=== PATIENT | female | born 1980 | race Two or more races ===

== ENCOUNTER 2024-03-13 05:28 | Day surgery (SDC) | payer OTHER ==
[2024-03-10 11:17] LABS: URINE APPEARANCE Clear; URINE BILIRRUBIN Negative (NEGATIVE); URINE BLOOD Negative; URINE COLOR Yellow; URINE GLUCOSE Negative (NEGATIVE); URINE KETONE Trace (NEGATIVE); URINE LEUKOCYTE Negative; URINE NITRATE Negative; URINE PROTEIN Negative (NEGATIVE); URINE UROBILINOGEN 0.2 E.U./dl
[2024-03-10 11:21] LABS: URINE BACTERIA 110.8 uL (0.0-1933); URINE EPITHELIAL CELLS 14.2 uL (0.0-38.8); URINE RBC 6.1 uL (0.0-20.8); URINE WBC 10.5 uL (0.0-23.2)
[2024-03-10 11:23] LABS: HEMATOCRIT 34.3 % (36.0-45.00); HEMOGLOBIN 11.2 g/dL (12.0-15.00); MEAN CELL VOLUME 74.9 fL (80.00-100.00); MEAN CORPUSCULAR HEMOGLOBIN 24.4 pg (27.00-32.0); MEAN CORPUSCULAR HGB CONC 32.6 g/dl (32.0-36.0); PLATELET COUNT 353 K/uL (150-450); RED BLOOD COUNT 4.59 M/uL (4.00-6.00); RED CELL DISTRIBUTION WIDTH 15.6 % (11.5-14.5)
[2024-03-10 11:43] LABS: INR 0.99; PARTIAL THROMBOPLASTIN TIME 27.6 SECONDS (22.0-34.0); PROTHROMBIN TIME 10.8 SECONDS (9.0-11.5)
[2024-03-10 11:49] LABS: BILIRUBIN TOTAL 0.39 mg/dL (0.3-1.2); CREATININE SERUM 0.68 mg/dL (0.55-1.02); GFR 94.89; GLOBULINA 3.8 G/DL (2.4-3.5); POTASSIUM 4.22 mEq/L (3.5-5.1); TOTAL PROTEIN 7.8 gm/dL (6.4-8.2)
[~2024-03-13 05:28] MED LIST: CRESTOR40 MG PO; FLONASE16 GM NS; METFORMIN HCL500 M3 PO; SYMBICORT 80/10.2 GM IH; ZYRTEC10 M3 PO
[2024-03-13] MEDS ORDERED: CEFAZOLIN SODIUM 1,000 MG VIAL IV ONE (08:15)
[2024-03-13] MEDS ORDERED: POVIDONE-IODINE 118 ML BOTT TOP ONE (08:30)
[2024-03-13] MEDS ORDERED: DOXYCYCLINE HY100 MG PO (09:32)
[2024-03-13] MEDS ORDERED: IBU600 MG PO (09:33)
== END 2024-03-13 13:25 | disposition home or self-care (01) ==
LOC: CIR.AMB 05:28
PROVIDERS: ATTEND Obstetrics & Gynecology
DX: D25.0 Submucous leiomyoma of uterus (principal); N84.0 Polyp of corpus uteri; N92.0 Excessive and frequent menstruation with regular cycle; J45.909 Unspecified asthma, uncomplicated; E11.9 Type 2 diabetes mellitus without complications

== ENCOUNTER 2024-11-18 18:48 | Inpatient (IN) | payer OTHER ==
[~2024-11-18] VITALS: Ht 167.1 cm; Wt 127.0 kg
[~2024-11-18 18:48] MED LIST changes: +DOXYCYCLINE HY100 MG PO; +IBU600 MG PO
[2024-11-18] MEDS ORDERED: EZALLOR SPRINKLE5 MG (19:02)
[2024-11-18] MEDS ORDERED: 0.9 % SODIUM CHLORIDE 1,000 ML IV STA (19:22)
[2024-11-18 19:47] LABS: BASO % 0.3 % (0.1-1.2); EOS # 0.17 (0.04-0.54); HEMATOCRIT 36.6 % (34.1-44.9); HEMOGLOBIN 11.9 g/dL (11.2-15.7); LYMPH % 25.6 % (19.3-53.1); MEAN CORPUSCULAR HEMOGLOBIN 28.3 pg (25.6-32.2); MONO # 0.78 (0.24-0.82); MONO % 9.1 % (4.7-12.5); NEUT # 5.41 (1.56-6.13); NEUT % 62.9 % (34.0-71.1); PLATELET COUNT 330 K/uL (163-369); RED CELL DISTRIBUTION WIDTH 13.5 % (11.6-14.4)
[2024-11-18 20:08] LABS: INR 1.03; PARTIAL THROMBOPLASTIN TIME 25.4 SECONDS (22.0-34.0); PROTHROMBIN TIME 11.2 SECONDS (9.0-11.5)
[2024-11-18 20:12] LABS: ALBUMIN 3.7 gm/dL (3.4-5.0); BILIRUBIN TOTAL 0.15 mg/dL (0.3-1.2); CALCIUM 8.9 mg/dL (8.5-10.1); CREATININE SERUM 0.85 mg/dL (0.55-1.02); GFR 73.34; GLOBULINA 3.6 G/DL (2.4-3.5); POTASSIUM 3.71 mEq/L (3.5-5.1); TOTAL PROTEIN 7.3 gm/dL (6.4-8.2)
[2024-11-18] MEDS ORDERED: POVIDONE-IODINE 118 ML BOTT TOP ONE (20:25)
[2024-11-18] MEDS ORDERED: CEFAZOLIN SODIUM 1,000 MG VIAL ONE (20:26)
[2024-11-18] MEDS ORDERED: SUGAMMADEX SODIUM 200 MG/2 ML VIAL IV ONE (22:09)
[2024-11-18] MEDS ORDERED: hydrALAZINE HCL 20 MG VIAL ONE (22:16)
[2024-11-18] MEDS ORDERED: KETOROLAC TROMETHAMINE 30 MG VIAL IV PRN (22:30)
[2024-11-18] MEDS ORDERED: ONDANSETRON HCL 2 MG/ML VIAL IV PRN (22:30)
[2024-11-18] MEDS ORDERED: RINGERS SOLUTION,LACTATED 1,000 ML IV SCH (22:30)
[2024-11-18] MEDS ORDERED: MORPHINE SULFATE 4 MG/ML CARTRIDGE IV PRN (22:30)
[2024-11-18] MEDS ORDERED: MORPHINE SULFATE 4 MG/ML VIAL IV ONE ×2 (23:15→23:45)
[2024-11-19 00:56] LABS: BASO % 0.4 % (0.1-1.2); EOS % 2.1 % (0.7-7.0); HEMATOCRIT 34.5 % (34.1-44.9); HEMOGLOBIN 10.9 g/dL (11.2-15.7); LYMPH # 2.92 (1.18-3.74); LYMPH % 30.8 % (19.3-53.1); MONO # 0.75 (0.24-0.82); MONO % 7.9 % (4.7-12.5); NEUT # 5.55 (1.56-6.13); NEUT % 58.6 % (34.0-71.1); PLATELET COUNT 341 K/uL (163-369); RED BLOOD COUNT 3.89 M/uL (3.93-5.22); RED CELL DISTRIBUTION WIDTH 13.7 % (11.6-14.4)
[2024-11-19 01:40] VITALS: O2SAT 99
[2024-11-19 02:04] VITALS: BP 109/58
[2024-11-19 06:28] LABS: BASO % 0.2 % (0.1-1.2); EOS # 0.01 (0.04-0.54); EOS % 0.1 % (0.7-7.0); HEMATOCRIT 32.4 % (34.1-44.9); HEMOGLOBIN 10.1 g/dL (11.2-15.7); LYMPH # 1.69 (1.18-3.74); LYMPH % 14.3 % (19.3-53.1); MEAN CORPUSCULAR HEMOGLOBIN 27.6 pg (25.6-32.2); MONO # 0.97 (0.24-0.82); MONO % 8.2 % (4.7-12.5); NEUT # 9.09 (1.56-6.13); NEUT % 76.9 % (34.0-71.1); PLATELET COUNT 307 K/uL (163-369); RED BLOOD COUNT 3.66 M/uL (3.93-5.22); RED CELL DISTRIBUTION WIDTH 13.7 % (11.6-14.4)
[2024-11-19 08:19] VITALS: BP 123/63
[2024-11-19] MEDS ORDERED: SIMETHICONE 125 MG CAPSULE PO SCH (09:00)
[2024-11-19] MEDS ORDERED: ACETAMINOPHEN WITH CODEINE 1 UDTAB TABLET PO SCH (09:00)
[2024-11-19] MEDS ORDERED: NAPROXEN 500 MG TABLET PO SCH (09:00)
[2024-11-19 12:25] VITALS: BP 123/63
[2024-11-19] MEDS ORDERED: NAPROXEN500 MG PO (14:15)
== END 2024-11-19 16:21 | disposition home or self-care (01) | DRG 743 ==
LOC: ER 18:48 → OB/GYN 19:44 → SEC-K 19:44 → OB/GYN 22:08
PROVIDERS: ADMIT Obstetrics & Gynecology; ATTEND Obstetrics & Gynecology
PROC: 0UB90ZZ Excision of Uterus, Open Approach (ICD-10-PCS; principal; 2024-11-18 19:30)
DX: D25.0 Submucous leiomyoma of uterus (principal); N92.0 Excessive and frequent menstruation with regular cycle

== ENCOUNTER 2025-01-08 08:15 | Inpatient (IN) | payer OTHER ==
[~2025-01-08] VITALS: Ht 172.7 cm; Wt 124.3 kg
[~2025-01-08 08:15] MED LIST changes: +EZALLOR SPRINKLE5 MG; +NAPROXEN500 MG PO
[2025-01-08 10:00] VITALS: BP 118/70
[2025-01-08] MEDS ORDERED: OZEMPIC2 MG/0.75 SQ (10:00)
[2025-01-08 10:03] VITALS: BP 124/81
[2025-01-08 10:07] LABS: BASO % 0.4 % (0.1-1.2); EOS # 0.24 (0.04-0.54); EOS % 2.9 % (0.7-7.0); LYMPH # 2.02 (1.18-3.74); LYMPH % 24.3 % (19.3-53.1); MEAN PLATELET VOLUME 11.60 fl (9.4-12.4); MONO # 0.77 (0.24-0.82); MONO % 9.3 % (4.7-12.5); NEUT # 5.24 (1.56-6.13); NEUT % 62.9 % (34.0-71.1); RED CELL DISTRIBUTION WIDTH 12.4 % (11.6-14.4)
[2025-01-08 10:09] LABS: URINE APPEARANCE Clear; URINE BILIRRUBIN Negative (NEGATIVE); URINE BLOOD Small; URINE COLOR Yellow; URINE GLUCOSE Negative (NEGATIVE); URINE KETONE 15 (NEGATIVE); URINE LEUKOCYTE Trace; URINE NITRATE Negative; URINE PROTEIN Negative (NEGATIVE); URINE UROBILINOGEN 0.2 E.U./dl
[2025-01-08 10:12] LABS: URINE BACTERIA 20.3 uL (0.0-1933); URINE EPITHELIAL CELLS 42.4 uL (0.0-38.8); URINE RBC 48.3 uL (0.0-20.8); URINE WBC 27.3 uL (0.0-23.2)
[2025-01-08 10:23] LABS: URINE CAST 0.00 uL (0.0-1.40)
[2025-01-08 10:38] LABS: ALT/SGPT 19.0 U/L (12-78); AST/SGOT 12.0 U/L (15-37); BILIRUBIN TOTAL 0.26 mg/dL (0.3-1.2); BUN CREA RATIO 27.0 (7.0-25.0); CREATININE SERUM 0.63 mg/dL (0.55-1.02); GFR 103.63; GLOBULINA 3.1 G/DL (2.4-3.5); GLUCOSE FASTING 97.0 mg/dL (65-100); OSMOLALITY SERUM 285.0 MOSM/KG (275-295)
[2025-01-08 10:42] LABS: INR 1.03
[2025-01-15] MEDS ORDERED: POVIDONE-IODINE 118 ML BOTT TOP ONE (12:00)
[2025-01-15] MEDS ORDERED: CEFOXITIN SODIUM 2,000 MG VIAL IV ONE (12:00)
[2025-01-15] MEDS ORDERED: METRONIDAZOLE/SODIUM CHLORIDE 500 MG/100 ML PIGGYBACK IV ONE (12:00)
[2025-01-15] MEDS ORDERED: VITAMIN D31250 MCG (13:24)
[2025-01-15] MEDS ORDERED: RINGERS SOLUTION,LACTATED 1,000 ML IV SCH (13:45)
[2025-01-15] MEDS ORDERED: ONDANSETRON HCL 2 MG/ML VIAL IV PRN (13:45)
[2025-01-15] MEDS ORDERED: MORPHINE SULFATE 4 MG/ML CARTRIDGE IV PRN (13:45)
[2025-01-15] MEDS ORDERED: KETOROLAC TROMETHAMINE 30 MG VIAL IV PRN (14:00)
[2025-01-15] MEDS ORDERED: SUGAMMADEX SODIUM 200 MG/2 ML VIAL IV ONE (14:30)
[2025-01-15] MEDS ORDERED: DEXTROSE 50 % IN WATER 0.5 G/ML VIAL IV PRN (14:45)
[2025-01-15] MEDS ORDERED: INSULIN LISPRO 1,000 UNIT/10 ML UNITS SUBCUTANEO PRN (14:45)
[2025-01-15] MEDS ORDERED: MORPHINE SULFATE 4 MG/ML VIAL IV ONE ×2 (15:45)
[2025-01-15] MEDS ORDERED: SIMETHICONE 125 MG CAPSULE PO SCH (18:00)
[2025-01-15] MEDS ORDERED: LEVALBUTEROL HCL 0.63 MG/3 ML SOLUTION IH SCH (18:00)
[2025-01-15 19:30] VITALS: BP 118/70; O2SAT 97
[2025-01-15 20:57] LABS: BASO % 0.2 % (0.1-1.2); EOS # 0.06 (0.04-0.54); EOS % 0.5 % (0.7-7.0); LYMPH # 1.50 (1.18-3.74); LYMPH % 12.2 % (19.3-53.1); MEAN PLATELET VOLUME 11.70 fl (9.4-12.4); MONO # 0.80 (0.24-0.82); MONO % 6.5 % (4.7-12.5); NEUT # 9.84 (1.56-6.13); NEUT % 80.4 % (34.0-71.1); RED CELL DISTRIBUTION WIDTH 12.6 % (11.6-14.4)
[2025-01-15] MEDS ORDERED: FAMOTIDINE/PF 20 MG/2 ML VIAL IV SCH (21:00)
[2025-01-16 01:59] VITALS: BP 104/62; O2SAT 95
[2025-01-16] MEDS ORDERED: ACETAMINOPHEN WITH CODEINE 1 UDTAB TABLET PO PRN (06:00)
[2025-01-16 08:00] VITALS: BP 120/68; O2SAT 95
[2025-01-16] MEDS ORDERED: ACETAMINOPHEN-1 EAC2 PO (08:48)
[2025-01-16] MEDS ORDERED: NAPROXEN500 MG PO (08:49)
[2025-01-16] MEDS ORDERED: PEPCID20 MG PO (08:49)
[2025-01-16] MEDS ORDERED: NAPROXEN 500 MG TABLET PO PRN (09:00)
== END 2025-01-16 13:56 | disposition home or self-care (01) | DRG 743 ==
LOC: OB/GYN 01-15 08:15 → O/R 01-15 10:33 → OB/GYN 01-15 11:15 → SURH 01-15 15:02
PROVIDERS: ADMIT Obstetrics & Gynecology; ATTEND Obstetrics & Gynecology
PROC: 0UT7FZZ Resection of Bilateral Fallopian Tubes, Via Natural or Artificial Opening With Percutaneous Endoscopic Assistance (ICD-10-PCS; 2025-01-15)
PROC: 0TJB8ZZ Inspection of Bladder, Via Natural or Artificial Opening Endoscopic (ICD-10-PCS; 2025-01-15)
PROC: 0UT9FZZ Resection of Uterus, Via Natural or Artificial Opening With Percutaneous Endoscopic Assistance (ICD-10-PCS; principal; 2025-01-15 11:15)
DX: D25.1 Intramural leiomyoma of uterus (principal); D25.2 Subserosal leiomyoma of uterus; R10.2 Pelvic and perineal pain; N92.0 Excessive and frequent menstruation with regular cycle; D25.0 Submucous leiomyoma of uterus; N81.11 Cystocele, midline